=== PATIENT | male | born 1980 | race Caucasian/White ===

== ENCOUNTER 2016-10-06 08:05 | Day surgery (SDC) | payer OTHER ==
[2016-09-29 10:18] VITALS: Ht 180.3 cm; Wt 95.9 kg
[~2016-10-06] VITALS: Ht 180.3 cm; Wt 95.9 kg
[~2016-10-06 08:05] MED LIST: ASPI81TA28 PO; BUSP15TA70 PO; CIPROFLOXACIN / D5W 400 MG IV SCH; DEXT4CHW60 PO; EMOL-19 EX; INSDGI SC; INSDGI SQ; INSUINJ17 SC; LACTATED RINGER'S 1000ML 1,000 ML IV SCH; LEVO175T3 PO; LISI-461 PO; METF-384 PO; POLY335019 PO; PRAZ1CAP10 PO; PROP20TA67 PO; SALI0.657 NAE; SNQ/25 PO; TAMS0.4C38 PO; TOPI50TA16 PO; TRAZ100T29 PO; VNTHFA/IN INH
[2016-10-06 09:20] VITALS: BP 135/74; PULSE 68; TEMP 37.2; O2SAT 99
[2016-10-06] MEDS ORDERED: MIDAZOLAM HCL 1 MG/ML 2ML VIAL ONE (09:32)
[2016-10-06] MEDS ORDERED: FENTANYL CITRATE INJ 50 MCG/1 ML 2 ML VIAL ONE (09:32)
--- NOTE | 2016-10-06 10:27 | History & Physical Bridge Note ---
H&P Re-Evaluation Bridge Note: I have examined the patient, reviewed the History & Physical and in the interval since the performance of the History & Physical I have noted the following changes of clinical significance: No changes noted
[2016-10-06] MEDS ORDERED: LIDOCAINE HCL 2% 2 ML VIAL (20MG/ML) ONE (11:04)
[2016-10-06] MEDS ORDERED: PROPOFOL IV EMULSION 10 MG/ML 20 ML VIAL IV ONE (11:04)
[2016-10-06] MEDS ORDERED: ONDANSETRON INJ 2 MG/ML 2 ML VIAL ONE (11:04)
[2016-10-06] MEDS ORDERED: CONRAY 30% 150ML BOTTLE ONE (11:07)
--- NOTE | 2016-10-06 11:48 | [facility] Post Operative Brief Note ---
Immediate Operative Summary Operative Date October 06, 2016. Pre-Operative Diagnosis Gross Hematuria, Left Kidney filling defect Post-Operative Diagnosis Gross Hematuria, Left Kidney filling defect; meatal stenosis; left ureteral stricture; bladder diverticulum Procedure(s) Performed Cystoscopy, urethral dilation (sounds); left Ureteral Dilation L (Balloon); left Ureteroscopy, Bilateral Retrograde Pyleogram; Left Ureteral Stent Placement ([id number]) Surgeon Dr. Tejeda Continuous [employer] Supervisor Surgeon(s) none Estimated Blood Loss 10 cc Findings as per dictation Specimens none per surgeon Drains [id number] stent Anesthesia Gen Complication(s) None Disposition Recovery Room / PACU (stable)
[2016-10-06] MEDS ORDERED: PHEN-775 PO (11:50)
[2016-10-06] MEDS ORDERED: CIPR-255 PO (11:50)
[2016-10-06] MEDS ORDERED: ACET-749 PO (11:50)
[2016-10-06] MEDS ORDERED: SODIUM CHLORIDE 0.9% 1000ML 1,000 ML IV SCH (11:54)
--- NOTE | 2016-10-06 11:54 | Discharge Instructions ---
Discharge Instructions Date of Service October 06, 2016. Admission Reason for Admission: Gross Hematuria Discharge Discharge Diagnosis / Problem: meatal stenosis; Left ureteral stricture Discharge Goals Goal(s): Decrease discomfort, Improve function, Improve disease control, Prevent Disease Progression Activity Recommendations Activity Limitations: resume your previous activity Lifting Limitations: none Exercise/Sports Limitations: none May Resume Sexual Activity: when tolerated Shower/Bathe: no limitations Driving or Machine Use: no limitations . Instructions / Follow-Up Instructions / Follow-Up Dr. Tejeda's office will contact the fpc to arrange f/u Discharge Diet Recommended Diet: Regular Diet Procedures Procedures Performed: Cystoscopy, urethral dilation (sounds); left Ureteral Dilation L (Balloon); left Ureteroscopy, Bilateral Retrograde Pyleogram; Left Ureteral Stent Placement ([id number]) Pending Studies Studies pending at discharge: no Medical Emergencies . Who to Call and When: Medical Emergencies: If at any time you feel your situation is an emergency, please call 911 immediately. . Non-Emergent Contact Non-Emergency issues call your: Urologist Call Non-Emergent contact if: temperature is above 101.5, your pain is not controlled, your pain is worsening . . "Provider Documentation" section prepared by Neto Hedrick. . VTE Core Measure Inpt VTE Proph given/why not?: Treatment not indicated [place] Drug Monitoring Program Search Results: patient reviewed within database, no issues identified
[2016-10-06] MEDS ORDERED: OXYCODONE/ACETAMINOPHEN 5-325 TAB PO PRN ×2 (12:00)
[2016-10-06] MEDS ORDERED: ACETAMINOPHEN 325 MG TAB PO PRN (12:00)
[2016-10-06] MEDS ORDERED: KETOROLAC TROMETHAMINE 30 MG/ML VIAL ONE (12:04)
[2016-10-06] MEDS ORDERED: FENTANYL CITRATE INJ 50 MCG/1 ML 2 ML VIAL IV PRN (12:30)
[2016-10-06] MEDS ORDERED: EpHEDrine SULFATE INJ 50 MG/ML AMP IV PRN (12:30)
[2016-10-06] MEDS ORDERED: ATROPINE SULFATE 0.1 MG/ML 5ML SYR IV PRN (12:30)
--- NOTE | 2016-10-06 12:30 | Anesthesiology Progress Note ---
Anesthesia Post Op Note Date & Time October 06, 2016 at 12:30 Vital Signs Pain Intensity: 0 Vital Signs Past 12 Hours Date Time Temp Pulse Resp B/P Pulse Ox O2 Delivery O2 Flow Rate FiO2 10/06/16 12:25 74 18 109/78 98 Room Air 10/06/16 12:15 82 18 125/82 100 Mask 10 10/06/16 12:05 67 18 107/59 100 Mask 10 10/06/16 11:56 36.7 67 18 89/60 100 Mask 10 10/06/16 09:20 37.2 68 16 135/74 99 Room Air Notes Mental Status: alert / awake / arousable, participated in evaluation Pt Amnestic to Procedure: Yes Nausea / Vomiting: adequately controlled Pain: adequately controlled Airway Patency, RR, SpO2: stable & adequate BP & HR: stable & adequate Hydration State: stable & adequate Anesthetic Complications: no major complications apparent
[2016-10-06 12:45] VITALS: BP 114/60; PULSE 90; TEMP 36.4; O2SAT 99
[2016-10-06 13:15] VITALS: BP 121/85; PULSE 88; O2SAT 99
[2016-10-06 13:49] VITALS: BP 133/74; PULSE 70; TEMP 36.5; O2SAT 99
--- NOTE | 2016-10-06 18:23 | OPERATIVE REPORT ---
DATE OF OPERATION: 10/06/2016 PREOPERATIVE DIAGNOSIS: Hematuria. POSTOPERATIVE DIAGNOSES: Hematuria as well as urethral stricture and left ureteral stricture. SURGEON: Sunil Tejeda M.D. ESTIMATED BLOOD LOSS: 10 mL. URINE OUTPUT: Not recorded. PROCEDURE PERFORMED: Urethral dilation, cystoscopy, left ureteral dilation, left ureteroscopy, bilateral retrograde pyelograms and left ureteral stent placement 6 Mauritanian x 26 cm. ANESTHESIA: General. ESTIMATED BLOOD LOSS: 10 mL URINE OUTPUT: Not recorded. SPECIMENS: There were no specimens. DESCRIPTION OF THE PROCEDURE: Stuart Thomason was identified in the preoperative holding area, appropriate informed consents were reviewed and completed and the patient was transported to the operating suite. Upon arrival, he received appropriate preoperative antibiotics in the form of Cipro. Adequate general anesthesia was achieved and he was placed in dorsal lithotomy position where he was sterilely prepped and draped in standard fashion. I began the case by passing a 22-Mauritanian cystoscope per urethra. Unfortunately, this was able to be passed only 1 cm. In the back of the fossa navicularis, he had an extreme narrowing of the urethra and I was unable to pass the scope. I attempted to dilate this with the hemostat as well as with obturator of the scope and these were very tight and unable to pass. I used male urethral sounds and sequentially dilated this to 26 Mauritanian. I was then able to easily pass the scope. Inspection revealed no evidence of trauma in this area and appeared to be an appropriate radial dilation. Remaining portions of the urethra were healthy without other abnormalities. Prostate had a somewhat high bladder neck, but was small in size as would be expected for his age. Inspection of the bladder revealed surprisingly trabeculated bladder. I would estimate a grade 2 trabeculations throughout, but a diverticulum located on the right posterior bladder wall as well. Inspection of this diverticulum revealed no abnormalities within the tic itself. No mucosal disease or tumors and also no stones. Ureteral orifices were in orthotopic position. Aside from the trabeculation in the diverticulum, there were no other abnormalities noted of the bladder. There was no evidence of bleeding from any aspect of the bladder nor the prostate and efflux was clear from both the right and left kidney. Of note, the patient previously had a questionable filling defect in the left kidney and we are planning to perform ureteroscopy on the left. I was able to cannulate the left ureter with a sensor wire without difficulty and this wire advanced to the kidney without problems. I then performed a retrograde pyelogram which revealed normal caliber ureter in this area and I did not appreciate any filling defects per se. I then passed a second wire via the 10-Mauritanian double lumen catheter to the kidney and withdrew the 10-Mauritanian double lumen catheter. My initial effort to pass the scope allowed the scope to pass presumably into the ureter, but only several centimeters up the ureter. I attempted this again and was unsuccessful. I attempted to pass a 10-Mauritanian double lumen catheter again and this got stuck in the same location. I performed a repeat retrograde pyelogram and identified no filling defects aside from a small bubble in this area and no extravasation or other abnormalities. Given this finding, I presumed this to be a stricture and I passed a balloon dilator and performed a balloon dilation of the distal ureter. There was no significant waste and it had opened appropriately within insufflation to a 16 mmHg. After leaving the balloon in place for 1 minute, I deflated and withdrew it. I was then unable to pass the scope without difficulty through this area. As I reached the proximal ureter, became progressively more difficult to advance the scope. After reaching the area of the UPJ, I attached the camera and inspected. There was tissue located at the tip of the scope and very limited visualization. There was very limited mobility as well. I performed a retrograde pyelogram at that time through the scope and saw no extravasation and no other abnormalities and I was able to perform only an exit ureteroscopy with limited visualization again. As I reached the distal ureter, the tissue that was a lumped at the tip of the scope did come free and was free floating within the ureter itself. I performed a repeat retrograde pyelogram at that time which confirmed that this was kind of a free-floating tissue mass and I presumed this was a small flap raised during passage of the scope. There again was no extravasation and I am unclear if this was from the small stricture in this area or just simple trauma from the scope being advanced. Whatever the case, it significantly limited my ability to evaluate the patient's anatomy, and I elected to place a 6 Mauritanian 26 cm double-J ureteral stent and concluded this portion of the case for today. I did place this stent without difficulty with a good curl in the kidney and the bladder. The patient has also had right-sided pain and I elected to perform a right retrograde pyelogram, which revealed essentially a completely normal collecting system. At that time, I allowed this to drain and I concluded the case. Bladder was emptied and the patient was reversed from anesthesia and taken to the PACU in stable condition. I attest to the content of the Intraoperative Record and any orders documented therein. Any exceptio ns are noted below.
== END 2016-10-06 14:12 | disposition home or self-care (01) ==
LOC: C.ACU 08:05
PROVIDERS: ATTEND Urology
DX: R31.9 Hematuria, unspecified (principal); N35.9 Urethral stricture, unspecified; E11.9 Type 2 diabetes mellitus without complications; Z79.82 Long term (current) use of aspirin; F17.200 Nicotine dependence, unspecified, uncomplicated; Z80.3 Family history of malignant neoplasm of breast; Z82.49 Family history of ischemic heart disease and other diseases of the circulatory system

== ENCOUNTER → 2016-10-19 | Outpatient (CLI) | payer OTHER ==
[~2016-10-19] MED LIST changes: +ACET-749 PO; +BUSP-8 PO; +CIPR-255 PO; -CIPROFLOXACIN / D5W 400 MG IV SCH; +INSHRIE SC; +INSU1INJ SC; -LACTATED RINGER'S 1000ML 1,000 ML IV SCH; +LEVO150T9 PO; +POLY1POW47 PO
== END | disposition home or self-care (01) ==
LOC: C.LABSPEC 17:04
PROVIDERS: ATTEND Urology
DX: R39.9 Unspecified symptoms and signs involving the genitourinary system (principal)

== ENCOUNTER → 2016-10-19 | Outpatient (CLI) | payer OTHER | END | disposition home or self-care (01) | LOC: C.PATHSPEC 17:38 | PROVIDERS: ATTEND Urology | DX: N20.0 Calculus of kidney (principal) ==

== ENCOUNTER → 2016-11-25 | Outpatient (CLI) | payer OTHER ==
[~2016-11-25] MED LIST changes: -BUSP-8 PO; -INSHRIE SC; -INSU1INJ SC; -LEVO150T9 PO; -POLY1POW47 PO; -TRAZ100T29 PO
== END | disposition home or self-care (01) ==
LOC: C.LABSPEC 17:09
PROVIDERS: ATTEND Urology
DX: R31.0 Gross hematuria (principal); R39.198 Other difficulties with micturition; R39.15 Urgency of urination; N39.0 Urinary tract infection, site not specified

== ENCOUNTER 2017-05-05 13:43 | Emergency (ER) | payer OTHER ==
[~2017-05-05] VITALS: Ht 180.3 cm; Wt 81.0 kg
[~2017-05-05 13:43] MED LIST changes: -ACET-749 PO
[2017-05-05 13:46] VITALS: TEMP 36.5; Ht 180.3 cm; Wt 81.0 kg
--- NOTE | 2017-05-05 14:13 | EMERGENCY ROOM VISIT NOTE ---
History First contact with patient: 13:50 Chief Complaint: URINARY SYMPTOMS Stated Complaint: URINARY RETENTION Nursing Triage Summary: pt to the ED with not voiding since yesterday and right flank pain History of Present Illness The patient is a 37 year old male who presents to the Emergency Room with complaints of right flank pain and difficulty urinating that started yesterday morning. The patient reports only being able to dribble a small amount of urine since yesterday. He reports having difficulty with urination ever since his lithotripsy in September 2016. He has had chronic urinary retention, and has required catheterizations in the past. He denies any fever or chills. He denies any pain with bowel movements. He denies any rectal pain. He reports hematuria and vomiting since yesterday. The patient also reports having a history of type 2 diabetes. He thinks that his blood sugars have been elevated over the last several days. Review of Systems 10 system review performed and negative unless noted in HPI or below Past Medical/Surgical History Hepatitis C History of endocarditis Diabetes Status post 2 hernia repairs, jaw surgery and lithotripsy in September 2016 Family History Hypertension, cancer Social History Smoking Status: Current Every Day Smoker Drug Use: none Housing Status: other Occupation Status: other Current/Historical Medications Scheduled Albuterol Hfa (Ventolin Hfa), 2 PUFFS INH Q4H Aspirin (Aspirin Ec), 81 MG PO QAM Buspirone Hcl (Buspirone Hcl), 2 TAB PO BID Insulin Human Regular (Humulin R), SC UD Insulin Isophan/Regular (Humulin 70/30), 18 UNITS SC QPM Insulin Isophan/Regular (Humulin 70/30), 38 UNITS SC QAM Levothyroxine Sodium (Levothyroxine Sodium), 1 TAB PO DAILY Lisinopril (Zestril), 10 MG PO DAILY Metformin Hcl (Glucophage), 1,000 MG PO BID Polyethylene Glycol 3350 (Gavilax), 1 DOSE PO BID Tamsulosin Hcl (Flomax), 2 CAP PO HS Topiramate (Topamax), 1 TAB PO BID Trazodone Hcl (Trazodone), 100 MG PO HS Scheduled PRN Acetaminophen/Codeine (Tylenol W/Codeine #3), 2 TAB PO TID PRN for Pain Dextrose (Diabetic Use) (Glucose), 2 TAB PO BID PRN for HYPOGLYCEMIA PROTOCOL Physical Exam Vital Signs Date Time Temp Pulse Resp B/P (MAP) Pulse Ox O2 Delivery O2 Flow Rate FiO2 05/05/17 17:55 75 16 134/76 98 05/05/17 17:28 72 18 134/76 100 Room Air 05/05/17 15:42 65 18 134/67 100 Room Air 05/05/17 13:46 36.5 75 18 138/79 100 Room Air Physical Exam VITALS: Vitals are noted on the nurse's note and reviewed by myself. Vital signs stable. GENERAL: 37-year-old male, in no acute distress, nondiaphoretic, well-developed well-nourished. SKIN: The skin was without rashes, erythema, edema, or bruising. Multiple tattoos noted HEAD: Normocephalic atraumatic. MOUTH: Mucous membranes moist. NECK: Supple without nuchal rigidity. No JVD. HEART: Regular rate and rhythm without murmurs gallops or rubs. LUNGS: Clear to auscultation bilaterally without wheezes, rales or rhonchi. No accessory muscle use. ABDOMEN: Positive bowel sounds x 4.Soft, nontender, without organomegaly. No guarding or rebound tenderness. Right-sided CVA tenderness noted. MUSCULOSKELETAL: No muscle atrophy, erythema, or edema noted. Strength 5/5 throughout. NEURO: Patient was alert and oriented to person place and time. Normal sensation to touch. No focal neurological deficits. Medical Decision & Procedures ER Provider Diagnostic Interpretation: CT abdomen and pelvis without contrast IMPRESSION: 3 mm partially obstructing calculus right ureterovesical junction. Mild right hydroureteronephrosis. The above report was generated using voice recognition software. It may contain grammatical, syntax or spelling errors. Electronically signed by: Aric Zaragoza M.D. 05/05/2017 3:04 PM Dictated Date/Time: 05/05/2017 2:57 PM The status of this report is Signed. Draft = Not yet reviewed or approved by Radiologist. Signed = Reviewed and approved by Radiologist. <AttendingPhy></AttendingPhy> <FamilyPhy>Neyda COLES</FamilyPhy> <PrimaryPhy>Neyda COLES</PrimaryPhy> <UnitNumber>[id number]</UnitNumber> <VisitNumber> [id number]</VisitNumber> <PatientName>FADIA RAMOS [id number]</PatientName> < DateOfBirth>1980</DateOfBirth> <Location>[facility]</Location> <ServiceDate>11/14</ServiceDate> <MNE>ESINDI</MNE> <OrderingPhy>Jen Bishop Kirill HUTCHINSON</ OrderingPhy> <OrderingPhyMNE>f rep ord dr martin</OrderingPhyMNE> Laboratory Results 05/05/17 14:40 Red Blood Count 4.39, Mean Corpuscular Volume 81.5, Mean Corpuscular Hemoglobin 28.9, Mean Corpuscular Hemoglobin Concent 35.5, Mean Platelet Volume 10.9, Neutrophils (%) (Auto) 76.3, Lymphocytes (%) (Auto) 14.5, Monocytes (%) (Auto) 8.4, Eosinophils (%) (Auto) 0.5, Basophils (%) (Auto) 0.2, Neutrophils # (Auto) 7.45, Lymphocytes # (Auto) 1.42, Monocytes # (Auto) 0.82, Eosinophils # (Auto) 0.05, Basophils # (Auto) 0.02 05/05/17 14:40 Test 05/05/17 14:23 05/05/17 14:35 05/05/17 14:40 Bedside Glucose 103 mg/dl (70-99) Urine Color YELLOW Urine Appearance CLEAR (CLEAR) Urine pH 8.0 (4.5-7.5) Urine Specific [place] 1.010 (1.000-1.030) Urine Protein NEG (NEG) Urine Glucose (UA) NEG (NEG) Urine Ketones NEG (NEG) Urine Occult Blood 2+ (NEG) Urine Nitrite NEG (NEG) Urine Bilirubin NEG (NEG) Urine Urobilinogen NEG (NEG) Urine Leukocyte Esterase NEG (NEG) Urine WBC (Auto) 1-5 /hpf (0-5) Urine RBC (Auto) 0-4 /hpf (0-4) Urine Hyaline Casts (Auto) 0 /lpf (0-5) Urine Epithelial Cells (Auto) 0-5 /lpf (0-5) Urine Bacteria (Auto) NEG (NEG) White Blood Count 9.77 K/uL (4.8-10.8) Red Blood Count 4.39 M/uL (4.7-6.1) Hemoglobin 12.7 g/dL (14.0-18.0) Hematocrit 35.8 % (42-52) Mean Corpuscular Volume 81.5 fL (80-100) Mean Corpuscular Hemoglobin 28.9 pg (25-34) Mean Corpuscular Hemoglobin Concent 35.5 g/dl (32-36) Platelet Count 192 K/uL (130-400) Mean Platelet Volume 10.9 fL (7.4-10.4) Neutrophils (%) (Auto) 76.3 % Lymphocytes (%) (Auto) 14.5 % Monocytes (%) (Auto) 8.4 % Eosinophils (%) (Auto) 0.5 % Basophils (%) (Auto) 0.2 % Neutrophils # (Auto) 7.45 K/uL (1.4-6.5) Lymphocytes # (Auto) 1.42 K/uL (1.2-3.4) Monocytes # (Auto) 0.82 K/uL (0.11-0.59) Eosinophils # (Auto) 0.05 K/uL (0-0.5) Basophils # (Auto) 0.02 K/uL (0-0.2) RDW Standard Deviation 37.0 fL (36.4-46.3) RDW Coefficient of Variation 12.3 % (11.5-14.5) Immature Granulocyte % (Auto) 0.1 % Immature Granulocyte # (Auto) 0.01 K/uL (0.00-0.02) Microcytosis PRESENT Echinocytes 1+ Anion Gap 10.0 mmol/L (3-11) Est Creatinine Clear Calc Drug Dose 71.8 ml/min Estimated GFR () 68.7 Estimated GFR (Non- 59.2 BUN/Creatinine Ratio 10.5 (10-20) Calcium Level 9.0 mg/dl (8.5-10.1) Total Bilirubin 0.5 mg/dl (0.2-1) Aspartate Amino Transf (AST/SGOT) 30 U/L (15-37) Alanine Aminotransferase (ALT/SGPT) 42 U/L (12-78) Alkaline Phosphatase 33 U/L (45-117) Total Protein 7.3 gm/dl (6.4-8.2) Albumin 4.2 gm/dl (3.4-5.0) Globulin 3.1 gm/dl (2.5-4.0) Albumin/Globulin Ratio 1.4 (0.9-2) Medications Administered Medications (Trade) Dose Ordered Sig/Kun Route Start Time Stop Time Status Last Admin Dose Admin Lorazepam 1 mg/ Syringe 1 ml @ 0.5 mls/min NOW STAT IV 05/05/17 15:05 05/05/17 15:06 DC 05/05/17 15:38 0.5 MLS/MIN Ketorolac Tromethamine (Toradol Inj) 30 mg NOW STAT IV 05/05/17 15:17 05/05/17 15:18 DC 05/05/17 15:39 30 MG Tamsulosin HCl (Flomax Cap) 0.4 mg NOW ONCE PO 05/05/17 15:30 05/05/17 15:31 DC 05/05/17 15:30 0.4 MG Morphine Sulfate (MoRPHine SULFATE INJ) 4 mg ONE STAT IV 05/05/17 15:56 05/05/17 15:57 DC 05/05/17 16:16 4 MG Morphine Sulfate (MoRPHine SULFATE INJ) 4 mg ONE STAT IV 05/05/17 17:28 05/05/17 17:29 DC 05/05/17 17:37 4 MG ED Course Patient was seen and examined Vital signs including blood pressure were reviewed medications list was verified with patient Labs were obtained, and a saline lock was established Bladder scan was performed. A CT was performed. The patient was reassessed, and still complaining of pain. He was medicated with Toradol and morphine. We discussed the results of his workup. He voiced understanding. The patient did require an additional dose of morphine prior to discharge. He was also given Flomax by mouth. I reviewed discharge instructions the patient. They voiced understanding and had no further questions. Medical Decision Differential diagnosis: Urinary retention, UTI, ureteral colic, pyelonephritis, prostatitis This patient is a 37-year-old male with a history of urinary retention and kidney stones that presents emergency department with a main complaint of right flank pain, hematuria and urinary retention since yesterday. on exam, he had right-sided CVA tenderness. The patient was able to void on his own. His urinalysis shows blood. It does not appear to be infected. A CAT scan confirms a distal right 3 mm stone at the UVJ with associated mild hydronephrosis.. He was given pain medication, 1 dose of Toradol and Flomax. The patient is established with a urologist in [facility]. I believe he is stable to be discharged home with close urology follow-up. He will increase his fluid intake over the next several days. He was instructed to return to the emergency department with any worsening symptoms such as urinary retention for greater than 8 hours or fever. He is in agreement with this plan, and was discharged in good condition This chart was completed in part utilizing [email or web address] Speech Voice Recognition software. Attempts were made to minimize the grammatical errors, random word insertions, pronoun errors and incomplete sentences. Any formal questions or concerns about the content, text or information contained within the body of this dictation should be directly addressed to the provider for clarification. OF NOTEthe patient and providers at the longterm were notified of the patient' s slightly abnormal kidney function and sodium by phone after discharge. They were instructed to repeat blood work in 2 days. They're also instructed to avoid ibuprofen/NSAIDs and increase his oral fluids. Medication Reconcilliation Current Medication List: was personally reviewed by me Blood Pressure Screening Patient's blood pressure: Elevated blood pressure Impression Primary Impression: Right ureteral stone Departure Information Dispostion Home / Self-Care Condition [facility] Referrals Neyda COLES (PCP) Sunil Tejeda M.D. Patient Instructions ED Stone Renal W Colic, My [facility] Additional Instructions You were evaluated in the emergency department for flank pain and urinary problems. This is likely due to a kidney stone on the right side. It is important to stay well hydrated. Increase your fluid intake over the next several days Ibuprofen 600 mg every 6 hours Percocet 1-2 tabs every 4 hours for severe pain. Do not drink alcohol or drive while taking this medication. This may be taken with ibuprofen, but avoid Tylenol. Please take Flomax 1 tab daily for 14 days Zofran 1 tab under the tongue every 6 hours as needed for nausea Please follow-up with Dr. Tejeda from urology if your symptoms are not improving in the next 3 days Please return to the emergency department with any new, worsening or concerning symptoms; especially fever or the inability to urinate for 8 hours
[2017-05-05] MEDS ORDERED: LORAZEPAM INJ 1 MG in SYRINGE 0.5 ML IV STA (15:05)
--- NOTE | 2017-05-05 15:06 | DIAGNOSTIC IMAGING REPORT ---
ABD/PELVIS NO IV OR ORAL CONT CT DOSE: 321.54 mGy.cm HISTORY: Pain R flank pain and L testicular pain urinary retention TECHNIQUE: Multiaxial CT images of the abdomen and pelvis were performed without contrast. A dose lowering technique was utilized adhering to the principles of ALARA. COMPARISON STUDY: 10/21/2016 [place] FINDINGS: Lung bases are clear. 3 mm calculus right ureterovesical junction. Fullness right renal collecting system and right ureter. 2.5 mm nonobstructing calcification lower pole right kidney. Left kidney is negative for calcification. Nonobstructive bowel pattern. IMPRESSION: 3 mm partially obstructing calculus right ureterovesical junction. Mild right hydroureteronephrosis. The above report was generated using voice recognition software. It may contain grammatical, syntax or spelling errors. Electronically signed by: Aric Zaragoza M.D. 05/05/2017 3:04 PM Dictated Date/Time: 05/05/2017 2:57 PM
[2017-05-05 15:12] LABS: URINE APPEARANCE CLEAR (CLEAR); URINE BILIRUBIN NEG (NEG); URINE COLOR YELLOW; URINE EPITHELIAL CELL AUTO 0-5 /lpf (0-5); URINE NITRITE NEG (NEG); UROBILINOGEN NEG (NEG)
[2017-05-05] MEDS ORDERED: KETOROLAC TROMETHAMINE 30 MG/ML VIAL IV STA (15:17)
[2017-05-05] MEDS ORDERED: TAMSULOSIN HCL 0.4 MG CAP PO ONE (15:30)
[2017-05-05 15:32] LABS: HEMATOCRIT 35.8 % (42-52); MEAN CELL VOLUME 81.5 fL (80-100); MEAN CORPUSCULAR HEMOGLOBIN 28.9 pg (25-34); MEAN CORPUSCULAR HGB CONC 35.5 g/dl (32-36); MEAN PLATELET VOLUME 10.9 fL (7.4-10.4); PLATELET COUNT 192 K/uL (130-400); RED BLOOD COUNT 4.39 M/uL (4.7-6.1); WHITE BLOOD COUNT 9.77 K/uL (4.8-10.8)
[2017-05-05 15:32] LABS: MANUAL MICROSCOPIC REQUIRED? NO; REVIEW REQ? NO
[2017-05-05] MEDS ORDERED: LORAZEPAM 2 MG/ML 1 ML VIAL ONE (15:32)
[2017-05-05 15:39] LABS: BUN/CREATININE RATIO 10.5 (10-20); CREATININE 1.47 mg/dl (0.60-1.40); POTASSIUM 3.4 mmol/L (3.5-5.1)
[2017-05-05 15:42] LABS: ALB/GLOB RATIO 1.4 (0.9-2)
[2017-05-05 15:56] LABS: BASO % 0.2 %; BASO ABS # 0.02 K/uL (0-0.2); COMPLETE YES; ECHINOCYTES 1+; EOS % 0.5 %; IG% 0.1 %; LYMPH % 14.5 %; LYMPH ABS # 1.42 K/uL (1.2-3.4); MICROCYTOSIS PRESENT; MONO % 8.4 %; NEUT % 76.3 %
[2017-05-05] MEDS ORDERED: MoRPHine SULFATE 4 MG/ML 1 ML CARP\\VIAL IV STA ×2 (15:56→17:28)
[2017-05-05] MEDS ORDERED: INSHRIE SC (16:38)
[2017-05-05] MEDS ORDERED: LEVO150T9 PO (16:38)
[2017-05-05] MEDS ORDERED: BUSP-8 PO (16:38)
[2017-05-05] MEDS ORDERED: INSU1INJ SC ×2 (16:38)
[2017-05-05] MEDS ORDERED: TRAZ100T29 PO (16:38)
[2017-05-05] MEDS ORDERED: POLY1POW47 PO (16:38)
[2017-05-05] MEDS ORDERED: ACET-749 PO (16:39)
[2017-05-05 17:55] VITALS: BP 134/76; PULSE 75; O2SAT 98
== END 2017-05-05 18:04 | disposition home or self-care (01) ==
LOC: C.EDB 13:45
DX: N20.1 Calculus of ureter (principal); E11.9 Type 2 diabetes mellitus without complications; B19.20 Unspecified viral hepatitis C without hepatic coma; F17.200 Nicotine dependence, unspecified, uncomplicated; Z79.4 Long term (current) use of insulin; Z79.84 Long term (current) use of oral hypoglycemic drugs; Z79.899 Other long term (current) drug therapy; Z82.49 Family history of ischemic heart disease and other diseases of the circulatory system; Z80.9 Family history of malignant neoplasm, unspecified